=== PATIENT | female | born 1995 | race African-American/Black ===

== ENCOUNTER 2018-12-07 18:24 | Emergency (ER) | payer MEDICAID ==
[2018-12-07] MEDS ORDERED: Hydrocodone/APAP 10 mg/325 mg Tab PO STA (18:49)
[2018-12-07] MEDS ORDERED: Hydrocodone/APAP 10 mg/325 mg Tab ONE (18:55)
--- NOTE | 2018-12-07 19:03 | ED Physician Chart ---
ED Chief Complaint/HPI - Patient Information Date Seen:: 12/07/18 Time Seen:: 18:40 Chief Complaint:: dog bite History of Present Illness:: At 1920 patient was bitten by a stray dog on the right ring finger. Patient is right-hand dominant. Allergies:: Allergies Allergy/AdvReac Type Severity Reaction Status Date / Time No Known Allergies Allergy Verified 12/07/18 18:46 Vitals:: Vital Signs - 8 hr 12/07/18 18:25 Temp 98.2 F HR 83 RR 18 BP 146/111 O2 Sat % 100 Historian:: Patient Review:: Nurse's Note Reviewed ED Review of Systems - Review of Systems General/Constitutional: No fever, No chills Skin: Skin lesions Head: No headache Eyes: No loss of vision ENT: No earache Neck: No neck pain, No swelling Cardio Vascular: No chest pain, No palpitations Pulmonary: No SOB GI: No nausea, No vomiting, No diarrhea G/U: No dysuria Musculoskeletal: No bone or joint pain Psychiatric: No prior psych history, No depression, No anxiety Hematopoietic: No bruising Allergic/Immuno: No urticaria Neurological: No syncope ED Past Medical History - Past Medical History Past Medical History: No significant medical hx Family History: Heart disease, Diabetes Melitus, HTN, Cancer Social History: No Alcohol, Other (smokes about one half pack of cigarettes a day) Surgical History: None Psychiatricy History: None Family Medical History - Family Member Mother History Unknown: Yes ED Physical Exam - Physical Examination General/Constitutional: Well-developed, well-nourished, Alert, No distress Head: Atraumatic Eyes: Lids, conjuctiva normal, PERRL Other Skin comments:: Right ring finger: two 1 cm lacerations on the corral distal segment one on the radial side and one on the ulner side; lacerations are curved but run parallel to the longitudinal axis of the finger; edges of lacerations gape up to 1- 1 1/ 2 mm ENMT: External ears, nose nl Neck: No nuchal rigidity Respiratory: Nl effort/Exclusion, Clear to Auscultation Cardio Vascular: RRR GI: No tenderness/rebounding/guarding : No CVA tenderness Extremities: No edema Neuro/Psych: No focal deficits Misc: No paraspinal tenderness ED Assessment - Assessment General Assessment: Lacerations of the right ring finger should not be sutured as that would increase the chance of infection. The edges of the laceration are now well aligned. ED Septic Shock - . Is Septic Shock (SBP<90, OR Lactate>4 mmol\L) present?: No - <6hrs of presentation: Vital Signs: Vital Signs - 8 hr 12/07/18 18:25 Temp 98.2 F HR 83 RR 18 BP 146/111 O2 Sat % 100 ED Reassessment (Disposition) - Reassessment Reassessment Condition:: Unchanged - Diagnosis Diagnosis:: Dog bite right ring finger with two 1 cm lacerations of distal segment - Aftercare/Follow up Instructions Aftercare/Follow-Up Instructions:: Refer to Discharge Instructions Medication Prescribed:: Augmentin 875 mg twice a day for 5 days - Patient Disposition Discharge/Transfer:: Home Condition at Disposition:: Stable, Unchanged
== END 2018-12-07 19:35 | disposition home or self-care (01) ==
LOC: ER 18:24
DX: S61.214A Laceration without foreign body of right ring finger without damage to nail, initial encounter (principal); F17.210 Nicotine dependence, cigarettes, uncomplicated; W54.0XXA Bitten by dog, initial encounter; Y93.89 Activity, other specified; Y92.89 Other specified places as the place of occurrence of the external cause; Y99.8 Other external cause status
CPT/HCPCS: Z7502